=== PATIENT | female | born 1955 | race Caucasian/White ===

== ENCOUNTER 2021-02-01 13:03 | Emergency (ER) | payer BC ==
[2021-02-01 13:57] LABS: #Eosinphils 0.1 10x3/uL (0.0-0.5); #Monocytes 0.8 10x3/uL (0.0-1.1); #Neutrophils 6.7 10x3/uL (1.5-8.4); %Basophils 0.4 % (0.0-2.0); %Eosinophils 1.1 % (0.0-6.0); %Lymphocytes 28.3 % (18.0-47.0); %Monocytes 7.7 % (0.0-10.0); %Neutrophils 62.1 % (40.0-75.0); Hemoglobin 12.8 g/dL (12.0-15.5); Mean Corpuscular HGB CONC 31.2 g/dL (32.0-36.0); Mean Corpuscular Volume 83.2 fl (81.6-98.3); Mean Platelet Volume 10.6 fl (7.4-10.4); Platelet Count 250 10x3/uL (150-450); RBC Distribution Width 21.4 % (11.5-14.5); Red Blood Cell (RBC) Count 4.93 10x6/uL (3.90-5.03); White Blood Cell (WBC) Count 10.7 10x3/uL (3.5-10.5)
[2021-02-01 14:22] LABS: ALT (SGPT) 23 U/L (8-55); AST (SGOT) 25 U/L (5-34); Albumin 4.3 g/dL (3.4-4.8); Alkaline Phosphatase 145 U/L (40-110); Anion Gap 14 mmol/L (10-20); BUN (Urea Nitrogen) 14 mg/dL (9.8-20.1); Bilirubin, Total 0.3 mg/dL (0.2-1.2); Calc. Creatinine Clearance 0 mL/min (70-130); Calcium 9.3 mg/dL (7.8-10.44); Carbon Dioxide 25 mmol/L (23-31); Chloride 103 mmol/L (98-107); Globulin 2.9 g/dL (2.4-3.5); Glucose 102 mg/dL (80-115); Lipase 23 U/L (8-78); Potassium 5.4 mmol/L (3.5-5.1); Protein, Total 7.2 g/dL (5.8-8.1); Sodium 137 mmol/L (136-145)
[2021-02-01 14:50] LABS: Bilirubin Neg (Negative); Blood, Urine Negative (Negative); Clarity Clear (Clear); Glucose, Urine (Dipstick) Normal (Negative); Ketone, Urine Negative (Negative); Leukocyte Negative (Negative); Nitrite Negative (Negative); Protein, Urine (Dipstick) Negative (Neg-Trace); Specific Gravity, Urine 1.005 (1.002-1.036); Urobilinogen Normal mg/dL (Less than 2)
== END 2021-02-01 16:10 | disposition home or self-care (01) ==
LOC: CSHERS 13:03
DX: R10.9 Unspecified abdominal pain (principal); E78.5 Hyperlipidemia, unspecified; I10 Essential (primary) hypertension; Z79.899 Other long term (current) drug therapy
CPT/HCPCS: 36415; 74177; 80053; 81003; 83605; 83690; 84484; 85025